=== PATIENT | female | born 1975 | race African-American/Black ===

== ENCOUNTER 2017-07-06 10:14 | Inpatient (IN) | payer OTHER ==
[2017-07-06 10:58] VITALS: BMI 25.6
--- NOTE | 2017-07-06 14:02 | HP ---
COWS - Scale Resting Pulse: 1= [place] 81-100 Sweatin=Flushed/Facial Moisture Restless Observation: 3= Extraneous Movement Pupil Size: 2= Moderately Dilated Bone or Joint Aches: 2= Severe Diffuse Aches Runny Nose/ Eye Tearin= Runny Nose/Eyes GI Upset > 30mins: 3= Vomiting/Diarrhea Tremor Observation: 2= Slight Tremor Visible Yawning Observation: 2= >3x During Session Anxiety or Irritability: 2=Irritable/Anxious Goose Flesh Skin: 0=Smooth Skin COWS Score: 21 Admission ROS BHS - HPI Chief Complaint: i need help to stop using heroin and cocaine Allergies/Adverse Reactions: Allergies Allergy/AdvReac Type Severity Reaction Status Date / Time mushroom Allergy Severe Difficulty Verified 07/06/17 12:36 Breathing peach Allergy Severe Difficulty Verified 07/06/17 12:36 Breathing plum Allergy Severe Difficulty Verified 07/06/17 12:36 Breathing shellfish derived Allergy Severe Difficulty Verified 07/06/17 12:36 Breathing No Known Drug Allergies Allergy Verified 07/06/17 12:36 History of Present Illness: this 42 years old female with heroin and cocaine dependence,seeking detox,last inpatient treatment [facility] 2013 history of asthma bipolar disorder,ocd,antisocial longest period of sobriety 8 months Exam Limitations: No Limitations - Ebola screening Have you traveled outside of the country in the last 21 days: No Have you been sick,other than usual withdrawal symptoms: No - Review of Systems Constitutional: Chills, Loss of Appetite, Malaise, Night Sweats, Changes in sleep, Weakness, Unintentional Wgt. Loss EENT: reports: Hearing Loss, Nose Congestion Respiratory: reports: Shortness of Breath (asthma), Other Cardiac: reports: Palpitations GI: reports: Diarrhea, Nausea, Vomiting, Abdominal cramping : reports: No Symptoms Reported Musculoskeletal: reports: Back Pain, Joint Pain, Muscle Pain, Joint Stiffness Integumentary: reports: Dryness Neuro: reports: Headache, Tremors Endocrine: reports: No Symptoms Reported Hematology: reports: No Symptoms Reported Psychiatric: reports: No Sypmtoms Reported, Judgement Intact, Mood/Affect Appropiate, Orientated x3 (ocd) Patient History - Patient Medical History Hx Anemia: No Hx Asthma: Yes (onalbuterol inhaler) Hx Chronic Obstructive Pulmonary Disease (COPD): No Hx Cancer: No Hx Cardiac Disorders: No Hx Congestive Heart Failure: No Hx Hypertension: No Hx Hypercholesterolemia: No Hx Pacemaker: No HX Cerebrovascular Accident: No Hx Seizures: No Hx Dementia: No Hx Diabetes: No Hx Gastrointestinal Disorders: No Hx Liver Disease: No Hx Genitourinary Disorders: No Hx Sexually Transmitted Disorders: No Hx Renal Disease (ESRD): No Hx Thyroid Disease: No Hx Human Immunodeficiency Virus (HIV): No (LAST 2014 negative) Hx Hepatitis C: Yes Hx Depression: Yes Hx Suicide Attempt: Yes (cut left wrist at age 13) Hx Bipolar Disorder: No Hx Schizophrenia: No Other Medical History: no suicidal,no homicidal - Patient Surgical History Past Surgical History: No Hx Neurologic Surgery: No Hx Cataract Extraction: No Hx Cardiac Surgery: No Hx Lung Surgery: No Hx Breast Surgery: No Hx Breast Biopsy: No Hx Abdominal Surgery: No Hx Appendectomy: No Hx Cholecystectomy: No Hx Genitourinary Surgery: No Hx Section: No Hx Orthopedic Surgery: No Anesthesia Reaction: No - PPD History Previous Implant?: Yes Documented Results: Negative w/proof Implanted On Prior [facility] Admission?: Yes Date: 05/18/12 Results: 0 mm PPD to be Administered?: Yes - Reproductive History Patient is a Female of Child Bearing Age (11 -55 yrs old): Yes Last Menstrual Period: 06/23/17 Patient : No - Smoking Cessation Smoking history: Current every day smoker Have you smoked in the past 12 months: Yes Aproximately how many cigarettes per day: 10 Hx Chewing Tobacco Use: No Initiated information on smoking cessation: Yes 'Breaking Loose' booklet given: 07/06/17 - Substance & Tx. History Hx Alcohol Use: No Hx Substance Use: Yes Substance Use Type: Cocaine, Heroin - Substances Abused Heroin Route: Inhalation Frequency: Daily Amount used: 6 bags Age of first use: 17 Date of Last Use: 07/06/17 Crack Route: Smoking Frequency: Daily Amount used: $100 Age of first use: 17 Date of Last Use: 07/05/17 [place] Route: Smoking Frequency: Daily Amount used: 3 blunts Age of first use: 9 Date of Last Use: 07/05/17 Marijuana Route: Smoking Frequency: Daily Amount used: 3 blunts Age of first use: 9 Date of Last Use: 07/05/17 Family Disease History - Family Disease History Family History: Denies Admission Physical Exam [facility] - Vital Signs Vital Signs: Vital Signs - 24 hr 07/06/17 10:56 Temperature 97.5 F L Pulse Rate 83 Respiratory 18 Rate Blood Pressure 150/80 - Physical General Appearance: Yes: Moderate Distress, Irritable, Sweating HEENTM: Yes: Normal ENT Inspection, ERIK, Pharynx Normal Respiratory: Yes: No Respiratory Distress, Wheezing Neck: Yes: Within Normal Limits Breast: Yes: Breast Exam Deferred Cardiology: Yes: Within Normal Limits, Regular Rhythm, Regular Rate, S1, S2 Abdominal: Yes: Within Normal Limits, Normal Bowel Sounds, Non Tender, Flat, Soft Genitourinary: Yes: Within Normal Limits Back: Yes: Muscle Spasm Musculoskeletal: Yes: Back pain, Muscle Pain Extremities: Yes: Tremors Neurological: Yes: software firmware engineer II-XII NML intact, Fully Oriented, Alert, Motor Strength 5/5 Integumentary: Yes: Dry Lymphatic: Yes: Within Normal Limits - Diagnostic (1) Opioid dependence with withdrawal Current Visit: No Status: Acute (2) Cocaine dependence Current Visit: Yes Status: Acute (3) Hepatitis C Current Visit: No Status: Acute (4) Nicotine dependence Current Visit: No Status: Acute (5) Asthma Current Visit: Yes Status: Acute (6) OCD (obsessive compulsive disorder) Current Visit: Yes Status: Acute (7) Personality disorder Current Visit: No Status: Acute Cleared for Admission [facility] - Detox or Rehab [facility] Level of Care: Medically Managed Detox Regimen/Protocol: Methadone [facility] Breath Alcohol Content Breath Alcohol Content: 0 Urine Pregancy Test - Result Urine Test Results: Negative- NO Line Present Urine Drug Screen - Results Drug Screen Negative: No Urine Drug Screen Results: THC-Marijuana, KAYY-Cocaine, OPI-Opiates
[2017-07-06] MEDS ORDERED: ACETAMINOPHEN 325 MG TABLET (FP) PO PRN (14:19)
[2017-07-06] MEDS ORDERED: IBUPROFEN 400 MG TABLET (FP) PO PRN (14:19)
[2017-07-06] MEDS ORDERED: MAG HYDROX/AL HYDROX/SIMETH 30 ML UNIT-DOSE CUP PO PRN (14:19)
[2017-07-06] MEDS ORDERED: guaiFENesin/D-METHORPHAN HB 10 ML UNIT-DOSE CUPS PO PRN (14:19)
[2017-07-06] MEDS ORDERED: P-EPHED 60MG/TRIPROLIDI 2.5MG TABLET PO PRN (14:19)
[2017-07-06] MEDS ORDERED: MENTHOL/PHENOL 1 EACH UD MM PRN (14:19)
[2017-07-06] MEDS ORDERED: MAGNESIUM CITRATE 300 ML BOTTLE PO PRN (14:19)
[2017-07-06] MEDS ORDERED: hydrOXYzine PAMOATE 25 MG CAPSULE (FP) PO PRN (14:19)
[2017-07-06] MEDS ORDERED: MAGNESIUM HYDROX 2400MG/30ML ORAL SUSPENSION 30 ML CUP PO PRN (14:19)
[2017-07-06] MEDS ORDERED: LOPERAMIDE HCL 2 MG CAPSULE PO PRN (14:19)
[2017-07-06] MEDS ORDERED: diphenhydrAMINE HCL 50 MG CAPSULE PO PRN (14:19)
[2017-07-06] MEDS ORDERED: ALBUTEROL SO4 2.5/IPRATROPIUM 0.5 INH SOL 3 ML VIAL.NEB. NEB PRN (14:27)
[2017-07-06] MEDS ORDERED: METHADONE HCL 10 MG TABLET (FOR DETOX USE ONLY) PO ONE ×2 (14:46→23:00)
[2017-07-06] MEDS: diazePAM 5 MG TABLET PO PRN ×2 (15:30→22:12)
[2017-07-06] MEDS: NICOTINE 21 MG/24 HOURS TOPICAL PATCH TD SCH (15:33)
[2017-07-06] MEDS: ALBUTEROL SO4 18 GM HFA INHALER IH PRN (15:37)
--- NOTE | 2017-07-06 15:45 | CONSULT ---
[facility] Psychiatric Consult - Data Date of interview: 07/06/17 Admission source: [facility] Identifying data: This is 42 years old female with no psychiatric hospitalization history intoxicated with: Crack, Heroin and Nicotine Substance Abuse History: - Smoking Cessation. Smoking history: Current every day smoker. Have you smoked in the past 12 months: Yes. Aproximately how many cigarettes per day: 10. Hx Chewing Tobacco Use: No. Initiated information on smoking cessation: Yes. 'Breaking Loose' booklet given: 07/06/17. - Substance & Tx. History. Hx Alcohol Use: No. Hx Substance Use: Yes. Substance Use Type : Cocaine, Heroin. - Substances Abused. Heroin. Route: Inhalation. Frequency: Daily. Amount used: 6 bags. Age of first use: 17. Date of Last Use : 07/06/17. Crack. Route: Smoking. Frequency: Daily. Amount used: $100. Age of first use: 17. Date of Last Use: 07/05/17. [place]. Route: Smoking. Frequency: Daily. Amount used: 3 blunts. Age of first use: 9. Date of Last Use: 07/05/17 Medical History: Asthma, HepC+, Psychiatric History: Patient reports history of depresssion, OCP. rtEPORTS TAKING PRIOR TO ADMISSION: WELLBUTRIN er 150MG POQD. SEROQUEL 200MG PO QHS Physical/Sexual Abuse/Trauma History: Denies Additional Comment: WELLBUTRIN er 150MG POQD. SEROQUEL 200MG PO QHS Mental Status Exam - Mental Status Exam Alert and Oriented to: Person Cognitive Function: Fair Patient Appearance: Unkempt Mood: Anxious Affect: Mood Congruent Patient Behavior: Cooperative Speech Pattern: Appropriate Voice Loudness: Normal Thought Process: Goal Oriented Thought Disorder: Being Controlled Hallucinations: Denies Suicidal Ideation: Denies Homicidal Ideation: Denies Insight/Judgement: Fair Sleep: Difficulty falling asleep Appetite: Weight loss Muscle strength/Tone: Normal Gait/Station: Normal Additional Comments: WELLBUTRIN er 150MG POQD. SEROQUEL 200MG PO QHS Psychiatric Findings - Problem List ([place] 1, 2,3) (1) Cocaine dependence Current Visit: Yes Status: Acute (2) OCD (obsessive compulsive disorder) Current Visit: Yes Status: Acute (3) Opioid dependence Current Visit: No Status: Active (4) Anxiety and depression Current Visit: No Status: Acute (5) Nicotine dependence Current Visit: No Status: Acute (6) Opioid dependence with withdrawal Current Visit: No Status: Acute (7) Personality disorder Current Visit: No Status: Acute (8) Drug-induced mood disorder Current Visit: Yes Status: Acute - Initial Treatment Plan Initial Treatment Plan: WELLBUTRIN er 150MG POQD. SEROQUEL 200MG PO QHS
[2017-07-06 17:13] LABS: URINE APPEARANCE SLCLOUDY; URINE BILIRUBIN NEGATIVE (NEGATIVE); URINE BLOOD NEGATIVE (NEGATIVE); URINE COLOR YELLOW; URINE GLUCOSE (UA) NEGATIVE (NEGATIVE); URINE KETONE NEGATIVE (NEGATIVE); URINE NITRITE NEGATIVE (NEGATIVE); URINE PROTEIN NEGATIVE (NEGATIVE); URINE UROBILINOGEN NEGATIVE mg/dL (0.2-1.0)
[2017-07-06] MEDS: THIAMINE HCL 100 MG TABLET (FP) PO SCH (22:12)
[2017-07-06 22:25] LABS: URINE LEUK ESTERASE Negative (NEGATIVE)
[2017-07-07] MEDS: ALBUTEROL SO4 18 GM HFA INHALER IH PRN ×2 (00:37→22:54)
[2017-07-07] MEDS: diazePAM 5 MG TABLET PO PRN ×2 (02:47→22:42)
[2017-07-07] MEDS ORDERED: METHADONE HCL 10 MG TABLET (FOR DETOX USE ONLY) PO ONE (10:00)
[2017-07-07 10:11] LABS: MCHC 31.9 g/dl (32.0-36.0); MEAN CELL VOLUME 78.6 fl (80-96); MEAN PLT VOLUME 7.5 fl (7.5-11.1); PLATELET COUNT 383 K/MM3 (134-434); RDW 15.5 % (11.6-15.6); WHITE BLOOD COUNT 5.8 K/mm3 (4.0-10.0)
[2017-07-07] MEDS: NICOTINE 21 MG/24 HOURS TOPICAL PATCH TD SCH (10:34)
[2017-07-07] MEDS: PRENATAL VITAMINS W/ FOLIC ACID TABLET (FP) PO SCH (10:34)
--- NOTE | 2017-07-07 10:35 | PN ---
BHS COWS - Scale Resting Pulse: 1= [place] 81-100 Sweatin=Flushed/Facial Moisture Restless Observation: 1= Difficult to Sit Still Pupil Size: 0= Normal to Room Light Bone or Joint Aches: 2= Severe Diffuse Aches Runny Nose/ Eye Tearin= Runny Nose/Eyes GI Upset > 30mins: 0= None Tremor Observation of Outstretched Hands: 2= Slight Tremor Visible Yawning Observation: 2= >3x During Session Anxiety or Irritability: 2=Irritable/Anxious Goose Flesh Skin: 3=Piloerection COWS Score: 17 BHS Progress Note (SOAP) Subjective: cough sweats irritable agitation anxiety body aches Objective: 07/07/17 10:34 Vital Signs Temperature 97.3 F L 07/07/17 06:40 Pulse Rate 82 07/07/17 06:40 Respiratory Rate 18 07/07/17 06:40 Blood Pressure 126/66 07/07/17 06:40 O2 Sat by Pulse Oximetry (%) Laboratory Tests 07/06/17 07/07/17 15:30 07:00 WBC 5.8 RBC 4.15 Hgb 10.4 L Hct 32.6 MCV 78.6 L MCH 25.0 L MCHC 31.9 L RDW 15.5 Plt Count 383 D MPV 7.5 D Urine Color Yellow Urine Appearance Slcloudy Urine pH 6.0 Ur Specific [place] 1.020 Urine Protein Negative Urine Glucose (UA) Negative Urine Ketones Negative Urine Blood Negative Urine Nitrite Negative Urine Bilirubin Negative Urine Urobilinogen Negative Ur Leukocyte Esterase Negative labs pending aaox3 ambulating no acute distress Assessment: 07/07/17 10:34 withdrawal sx Plan: continue detox increase fluids encourage albuterol duoneb tx robutussin prn
[2017-07-07 10:40] LABS: ALK PHOS 61 U/L (45-117); ANION GAP 11 (8-16); BILIRUBIN,TOTAL 0.4 mg/dL (0.2-1.0); CALCIUM 8.3 mg/dL (8.5-10.1); CO2 24 mmol/L (21-32); CREATININE 0.8 mg/dL (0.55-1.02); GLUCOSE,RANDOM 76 mg/dL (74-106); SGOT/AST 14 U/L (15-37); SGPT/ALT 13 U/L (12-78); TOT PROT 6.8 g/dl (6.4-8.2)
--- NOTE | 2017-07-07 20:33 | EKG ---
Test Reason : Blood Pressure : / mmHG Vent. Rate : 086 BPM Atrial Rate : 086 BPM P-R Int : 148 ms QRS Dur : 080 ms QT Int : 358 ms P-R-T Axes : 058 067 019 degrees QTc Int : 428 ms SINUS RHYTHM WITH PREMATURE ATRIAL COMPLEXES POSSIBLE LEFT ATRIAL ENLARGEMENT SEPTAL INFARCT , AGE UNDETERMINED ABNORMAL ECG NO PREVIOUS ECGS AVAILABLE REPEAT EKG IF CLINICALLY INDICATED Confirmed by MIRELA BROWN MD ([id number]) on 07/07/2017 8:32:55 PM Referred By: Confirmed By:MIRELA BROWN MD
[2017-07-07] MEDS: THIAMINE HCL 100 MG TABLET (FP) PO SCH (22:42)
[2017-07-08] MEDS ORDERED: ALBUTEROL SO4 18 GM HFA INHALER IH ONE (00:48)
[2017-07-08] MEDS: ALBUTEROL SO4 18 GM HFA INHALER IH PRN ×2 (04:38→09:15)
[2017-07-08] MEDS ORDERED: METHADONE HCL 5 MG TABLET (FOR DETOX USE ONLY) PO ONE (10:00)
[2017-07-08] MEDS ORDERED: cloNIDine HCL 0.1 MG TABLET PO ONE (10:35)
[2017-07-08] MEDS: PRENATAL VITAMINS W/ FOLIC ACID TABLET (FP) PO SCH (10:40)
[2017-07-08] MEDS: diazePAM 5 MG TABLET PO PRN (10:40)
--- NOTE | 2017-07-08 10:40 | PN ---
BHS COWS - Scale Resting Pulse: 1= [place] 81-100 Sweatin=Flushed/Facial Moisture Restless Observation: 1= Difficult to Sit Still Pupil Size: 0= Normal to Room Light Bone or Joint Aches: 2= Severe Diffuse Aches Runny Nose/ Eye Tearin= Runny Nose/Eyes GI Upset > 30mins: 0= None Tremor Observation of Outstretched Hands: 2= Slight Tremor Visible Yawning Observation: 1= 1-2x During Session Anxiety or Irritability: 2=Irritable/Anxious Goose Flesh Skin: 0=Smooth Skin COWS Score: 13 BHS Progress Note (SOAP) Subjective: irritable sweats interrupted sleep agitation Objective: 07/08/17 10:38 Vital Signs Temperature 98.2 07/08/17 10:00 Pulse Rate 96 07/08/17 10:00 Respiratory Rate 18 07/08/17 10:00 Blood Pressure 155/102 07/08/17 10:00 O2 Sat by Pulse Oximetry (%) Laboratory Tests 07/06/17 07/07/17 07/07/17 15:30 07:00 07:00 WBC 5.8 RBC 4.15 Hgb 10.4 L Hct 32.6 MCV 78.6 L MCH 25.0 L MCHC 31.9 L RDW 15.5 Plt Count 383 D MPV 7.5 D Sodium 141 Potassium 4.2 D Chloride 106 Carbon Dioxide 24 Anion Gap 11 BUN 11 Creatinine 0.8 Creat Clearance w eGFR > 60 Random Glucose 76 D Calcium 8.3 L Total Bilirubin 0.4 D AST 14 L ALT 13 D Alkaline Phosphatase 61 D Total Protein 6.8 Albumin 3.0 L Urine Color Yellow Urine Appearance Slcloudy Urine pH 6.0 Ur Specific [place] 1.020 Urine Protein Negative Urine Glucose (UA) Negative Urine Ketones Negative Urine Blood Negative Urine Nitrite Negative Urine Bilirubin Negative Urine Urobilinogen Negative Ur Leukocyte Esterase Negative RPR Titer 07/07/17 07:00 WBC RBC Hgb Hct MCV MCH MCHC RDW Plt Count MPV Sodium Potassium Chloride Carbon Dioxide Anion Gap BUN Creatinine Creat Clearance w eGFR Random Glucose Calcium Total Bilirubin AST ALT Alkaline Phosphatase Total Protein Albumin Urine Color Urine Appearance Urine pH Ur Specific [place] Urine Protein Urine Glucose (UA) Urine Ketones Urine Blood Urine Nitrite Urine Bilirubin Urine Urobilinogen Ur Leukocyte Esterase RPR Titer Nonreactive aaox3 ambulating no acute distress hypertension 155/102; will order clonidine 0.1mg x one monitor BP Assessment: 07/08/17 10:44 withdrawal sx Plan: continue detox increase fluids monitor BP clonidine 0.1mg x one
[2017-07-08] MEDS: NICOTINE 21 MG/24 HOURS TOPICAL PATCH TD SCH (10:42)
--- NOTE | 2017-07-08 14:47 | PN ---
[facility] Progress Note Note: Psychiatry Attending's note : Called to enter orders for wellbutrin XL and seroquel. Chart reviewed.Dr Bhakta's note (07/06/17) : appreciated. Both medications are confirmed in psychiatrist's treatment plan. Met with patient at bedside.Fully aware of her regimen of medications. Eager to resume these two drugs. Wellbutrin Xl 150 mg po daily + seroquel 100 mg po hs.Ordered. Seroquel is intentionally reduced (if no oversedation in AM,titration to 200 mg/ hs). Side effects/benefits are reviewed with the patient.Brief meeting.She agrees. Discussed with nursing staff.
[2017-07-08] MEDS ORDERED: QUEtiapine FUMARATE 100 MG TABLET (FP) PO SCH (22:00)
[2017-07-08] MEDS: THIAMINE HCL 100 MG TABLET (FP) PO SCH (22:26)
[2017-07-09] MEDS ORDERED: METHADONE HCL 5 MG TABLET (FOR DETOX USE ONLY) PO ONE (10:00)
[2017-07-09] MEDS: PRENATAL VITAMINS W/ FOLIC ACID TABLET (FP) PO SCH (10:44)
[2017-07-09] MEDS: diazePAM 5 MG TABLET PO PRN (10:44)
--- NOTE | 2017-07-09 11:26 | PN ---
BHS Progress Note (SOAP) Subjective: irritable sweats restless Objective: 07/09/17 11:25 Vital Signs Temperature 98.2 F 07/09/17 09:50 Pulse Rate 82 07/09/17 09:50 Respiratory Rate 18 07/09/17 09:50 Blood Pressure 133/98 07/09/17 09:50 O2 Sat by Pulse Oximetry (%) aaox3 ambulating no acute distress Assessment: 07/09/17 11:26 withdrawal sx Plan: continue detox increase fluids
[2017-07-09] MEDS: ALBUTEROL SO4 18 GM HFA INHALER IH PRN (11:48)
[2017-07-09] MEDS: NICOTINE 21 MG/24 HOURS TOPICAL PATCH TD SCH (11:59)
[2017-07-09 22:26] VITALS: BP 139/84; PULSE 81; TEMP 98.1
--- NOTE | 2017-07-10 00:03 | DS ---
[facility] Detox Discharge Summary Admission Date: 07/06/17 Discharge Date: 07/09/17 - History Present History: Opioid Dependence Additional Comments: received nurse called that the patient wants to leave the facility patient left the unit before provider arrived Pertinent Past History: asthma - Physical Exam Results Vital Signs: Vital Signs Temperature 98.1 F 07/09/17 18:00 Pulse Rate 81 07/09/17 18:00 Respiratory Rate 20 07/09/17 18:00 Blood Pressure 139/84 07/09/17 18:00 O2 Sat by Pulse Oximetry (%) Pertinent Admission Physical Exam Findings: withdrawal sx Laboratory Last Values WBC 5.8 K/mm3 (4.0-10.0) 07/07/17 07:00 RBC 4.15 M/mm3 (3.60-5.2) 07/07/17 07:00 Hgb 10.4 GM/dL (10.7-15.3) L 07/07/17 07:00 Hct 32.6 % (32.4-45.2) 07/07/17 07:00 MCV 78.6 fl (80-96) L 07/07/17 07:00 MCH 25.0 pg (25.7-33.7) L 07/07/17 07:00 MCHC 31.9 g/dl (32.0-36.0) L 07/07/17 07:00 RDW 15.5 % (11.6-15.6) 07/07/17 07:00 Plt Count 383 K/MM3 (134-434) D 07/07/17 07:00 MPV 7.5 fl (7.5-11.1) D 07/07/17 07:00 Sodium 141 mmol/L (136-145) 07/07/17 07:00 Potassium 4.2 mmol/L (3.5-5.1) D 07/07/17 07:00 Chloride 106 mmol/L (98-107) 07/07/17 07:00 Carbon Dioxide 24 mmol/L (21-32) 07/07/17 07:00 Anion Gap 11 (8-16) 07/07/17 07:00 BUN 11 mg/dL (7-18) 07/07/17 07:00 Creatinine 0.8 mg/dL (0.55-1.02) 07/07/17 07:00 Creat Clearance w eGFR > 60 (>60) 07/07/17 07:00 Random Glucose 76 mg/dL (74-106) D 07/07/17 07:00 Calcium 8.3 mg/dL (8.5-10.1) L 07/07/17 07:00 Total Bilirubin 0.4 mg/dL (0.2-1.0) D 07/07/17 07:00 AST 14 U/L (15-37) L 07/07/17 07:00 ALT 13 U/L (12-78) D 07/07/17 07:00 Alkaline Phosphatase 61 U/L (45-117) D 07/07/17 07:00 Total Protein 6.8 g/dl (6.4-8.2) 07/07/17 07:00 Albumin 3.0 g/dl (3.4-5.0) L 07/07/17 07:00 Urine Color Yellow 07/06/17 15:30 Urine Appearance Slcloudy 07/06/17 15:30 Urine pH 6.0 (5.0-8.0) 07/06/17 15:30 Ur Specific [place] 1.020 (1.005-1.025) 07/06/17 15:30 Urine Protein Negative (NEGATIVE) 07/06/17 15:30 Urine Glucose (UA) Negative (NEGATIVE) 07/06/17 15:30 Urine Ketones Negative (NEGATIVE) 07/06/17 15:30 Urine Blood Negative (NEGATIVE) 07/06/17 15:30 Urine Nitrite Negative (NEGATIVE) 07/06/17 15:30 Urine Bilirubin Negative (NEGATIVE) 07/06/17 15:30 Urine Urobilinogen Negative mg/dL (0.2-1.0) 07/06/17 15:30 Ur Leukocyte Esterase Negative (NEGATIVE) 07/06/17 15:30 RPR Titer Nonreactive (NONREACTIVE) 07/07/17 07:00 lab noted - Treatment Hospital Course: Detox Protocol Followed, Responded well Patient has Accepted a Rehab Referral to: patient wants to go back to her out patient program - Medication Discharge Medications: Ambulatory Orders Albuterol Sulfate Inhaler - [Ventolin Hfa Inhaler -] 2 inh PO Q4H PRN 03/31/16 Bupropion HCl [Wellbutrin -] 0 mg PO DAILY 07/06/17 Quetiapine Fumarate [Seroquel -] 200 mg PO HS 07/06/17 - AMA Did Patient Leave Against Medical Advice: Yes
[2017-07-10] MEDS ORDERED: METHADONE HCL 10 MG TABLET (FOR DETOX USE ONLY) PO ONE (10:00)
[2017-07-11] MEDS ORDERED: METHADONE HCL 5 MG TABLET (FOR DETOX USE ONLY) PO ONE (06:00)
== END 2017-07-09 21:45 | disposition left against medical advice (07) | DRG 770 ==
LOC: YASAS 10:14 → Y6N 14:34
PROVIDERS: ADMIT Internal Medicine; ATTEND Internal Medicine
PROC: HZ2ZZZZ Detoxification Services for Substance Abuse Treatment (ICD-10-PCS; principal; 2017-07-06)
DX: F11.23 Opioid dependence with withdrawal (principal); F14.20 Cocaine dependence, uncomplicated; F17.210 Nicotine dependence, cigarettes, uncomplicated; F39 Unspecified mood [affective] disorder; F19.24 Other psychoactive substance dependence with psychoactive substance-induced mood disorder; F41.8 Other specified anxiety disorders; F42.9 Obsessive-compulsive disorder, unspecified; J45.909 Unspecified asthma, uncomplicated; B18.2 Chronic viral hepatitis C; I10 Essential (primary) hypertension; Z91.048 Other nonmedicinal substance allergy status; Z91.013 Allergy to seafood; Z91.5 Personal history of self-harm
CPT/HCPCS: 36415; 80053; 81003; 85027; 86593; 93005; 93010

== ENCOUNTER 2018-10-29 13:45 | Inpatient (IN) | payer OTHER ==
[2018-10-29 13:53] VITALS: BMI 21.2
--- NOTE | 2018-10-29 15:21 | HP ---
COWS - Scale Resting Pulse: 0= [place] 80 or Below Sweatin=Flushed/Facial Moisture Restless Observation: 1= Difficult to Sit Still Pupil Size: 2= Moderately Dilated Bone or Joint Aches: 2= Severe Diffuse Aches Runny Nose/ Eye Tearin= Runny Nose/Eyes GI Upset > 30mins: 1= Stomach Cramp Tremor Observation: 0= None Yawning Observation: 1= 1-2x During Session Anxiety or Irritability: 2=Irritable/Anxious Goose Flesh Skin: 0=Smooth Skin COWS Score: 13 CIWA Score - Admission Criteria OAS Guidelines: Admission for Medically Managed Detox: Requires at least one of the followin. CIWA greater than 12 2. Seizures within the past 24 hours 3. Delirium tremens within the past 24 hours 4. Hallucinations within the past 24 hours 5. Acute intervention needed for co occurring medical disorder 6. Acute intervention needed for co occurring psychiatric disorder 7. Severe withdrawal that cannot be handled at a lower level of care (continued vomiting, continued diarrhea, abnormal vital signs) requiring intravenous medication and/or fluids 8. Admission ROS [facility] Chief Complaint: HEROIN WITHDRAWAL SX Allergies/Adverse Reactions: Allergies Allergy/AdvReac Type Severity Reaction Status Date / Time mushroom Allergy Severe Difficulty Verified 07/06/17 12:36 Breathing peach Allergy Severe Difficulty Verified 07/06/17 12:36 Breathing plum Allergy Severe Difficulty Verified 07/06/17 12:36 Breathing shellfish derived Allergy Severe Difficulty Verified 07/06/17 12:36 Breathing No Known Drug Allergies Allergy Verified 07/06/17 12:36 History of Present Illness: PATIENT PRESENTS WITH HEROIN WITHDRAWAL SX. PATIENT LAST ADMITTED TO DETOX HERE AT [facility] IN 2017. HOWEVER, PATIENT STOOD ONE DAY AT [facility] LAST WEEK AND SIGNED OUT AMA DUE TO OPIOD CRAVINGS. PATIENT STARTED SNIFFING HEROIN AT AGE 17 , AND SNIFFS 14 BAGS DAILY. LAST USED WAS THIS MORNING. PATIENT IS ALSO SOCIAL DRINKER BUT DOES NOT DRINK DAILY. ANABELLA 0.017, UDS KAYY/FEN/MTD/OPI. PATIENT DENIES HX OF SEIZURES, OVERDOSE. +BLACKOUTS. PMH INCLUDES HEP C (UNTREATED )OCD , ANTI-SOCIAL PERSONALITY DISORDER, ASTHMA, SCIATICA AND SCOLIOIS. PATIENT DENIES SI/HI. SUICIDE ATTEMPTS AT AGE 13. +TOBACCO USE. + COCAINE USE, 10 BAGS DAILY SINCE AGE 17. LAST USE TODAY. Exam Limitations: No Limitations - Ebola screening Have you traveled outside of the country in the last 21 days: No Have you had contact with anyone from an Ebola affected area: No Have you been sick,other than usual withdrawal symptoms: No Do you have a fever: No - Review of Systems Constitutional: Chills, Changes in sleep, Unintentional Wgt. Loss EENT: reports: Tearing, Nose Congestion Respiratory: reports: Shortness of Breath (MILD, INTERMITTENT) Cardiac: reports: No Symptoms Reported GI: reports: Poor Fluid Intake, Abdominal cramping : reports: No Symptoms Reported Musculoskeletal: reports: Back Pain, Muscle Pain Integumentary: reports: Sweating Neuro: reports: Headache Endocrine: reports: Unexplained Weight Loss Hematology: reports: No Symptoms Reported Psychiatric: reports: Orientated x3, Anxious Patient History - Patient Medical History Hx Anemia: No Hx Asthma: Yes (onalbuterol inhaler) Hx Chronic Obstructive Pulmonary Disease (COPD): No Hx Cancer: No Hx Cardiac Disorders: No Hx Congestive Heart Failure: No Hx Hypertension: No Hx Hypercholesterolemia: No Hx Pacemaker: No HX Cerebrovascular Accident: No Hx Seizures: No Hx Dementia: No Hx Diabetes: No Hx Gastrointestinal Disorders: No Hx Liver Disease: No Hx Genitourinary Disorders: No Hx Sexually Transmitted Disorders: No Hx Renal Disease (ESRD): No Hx Thyroid Disease: No Hx Human Immunodeficiency Virus (HIV): No (LAST 2014 negative) Hx Hepatitis C: Yes Hx Depression: No Hx Suicide Attempt: Yes (cut left wrist at age 13) Hx Bipolar Disorder: No Hx Schizophrenia: No - Patient Surgical History Past Surgical History: No Hx Neurologic Surgery: No Hx Cataract Extraction: No Hx Cardiac Surgery: No Hx Lung Surgery: No Hx Breast Surgery: No Hx Breast Biopsy: No Hx Abdominal Surgery: No Hx Appendectomy: No Hx Cholecystectomy: No Hx Genitourinary Surgery: No Hx Section: No Hx Orthopedic Surgery: No Hx Hysterectomy: No Anesthesia Reaction: No - PPD History Previous Implant?: Yes Documented Results: Negative w/o proof Date: 07/08/17 Results: 0 mm PPD to be Administered?: Yes - Reproductive History Last Menstrual Period: 06/14/18 Patient : No - Smoking Cessation Smoking history: Current every day smoker Have you smoked in the past 12 months: Yes Aproximately how many cigarettes per day: 6 Hx Chewing Tobacco Use: No Initiated information on smoking cessation: Yes 'Breaking Loose' booklet given: 10/29/18 - Substance & Tx. History Hx Alcohol Use: Yes (SOCIAL DRINKER) Hx Substance Use: Yes Substance Use Type: Cocaine, Heroin Hx Substance Use Treatment: Yes - Substances Abused Crack Route: Smoking Frequency: Daily Amount used: 10 BAGS Age of first use: 17 Date of Last Use: 10/29/18 Heroin Route: Inhalation Frequency: Daily Amount used: 14 BAGS Age of first use: 17 Date of Last Use: 10/29/18 Family Disease History - Family Disease History Family History: Denies Admission Physical Exam [facility] - Vital Signs Vital Signs: Vital Signs - 24 hr 10/29/18 13:50 Temperature 98.1 F Pulse Rate 80 Respiratory 20 Rate Blood Pressure 155/92 - Physical General Appearance: Yes: Disheveled, Thin, Tremorous, Sweating, Anxious HEENTM: Yes: EOMI, Hearing grossly Normal, Normocephalic, Normal Voice, Pharynx Normal, Nasal Congestion Respiratory: Yes: Chest Non-Tender, Lungs Clear, Normal Breath Sounds, No Respiratory Distress, No Accessory Muscle Use Neck: Yes: No masses,lesions,Nodules, Supple, Trachea in good position Breast: Yes: Breast Exam Deferred Cardiology: Yes: Regular Rhythm, Regular Rate, S1, S2 Abdominal: Yes: Normal Bowel Sounds, Non Tender, Soft Genitourinary: Yes: Within Normal Limits Back: Yes: Muscle Spasm Musculoskeletal: Yes: Gait Steady, Back pain, Muscle Pain, Muscle weakness Extremities: Yes: Normal Inspection, Normal Range of Motion, Non-Tender, Tremors Neurological: Yes: gauntlet pairer II-XII NML intact, Fully Oriented, Alert, Motor Strength 5/5, Normal Response, Other (ANXIOUS) Integumentary: Yes: Normal Color, Warm, Moist Lymphatic: Yes: Within Normal Limits - Diagnostic (1) OCD (obsessive compulsive disorder) Current Visit: Yes Status: Acute Qualifiers: Obsessive-compulsive disorder type: unspecified Qualified Code(s): F42.9 - Obsessive-compulsive disorder, unspecified (2) Asthma Current Visit: Yes Status: Chronic Qualifiers: Asthma severity: mild Asthma complication type: unspecified (3) Cocaine dependence Current Visit: Yes Status: Chronic Qualifiers: Substance use status: uncomplicated Qualified Code(s): F14.20 - Cocaine dependence, uncomplicated (4) Hepatitis C Current Visit: No Status: Chronic Qualifiers: Viral hepatitis chronicity: chronic Hepatic coma status: without hepatic coma Qualified Code(s): B18.2 - Chronic viral hepatitis C (5) Nicotine dependence Current Visit: No Status: Chronic Qualifiers: Nicotine product type: cigarettes Substance use status: uncomplicated Qualified Code(s): F17.210 - Nicotine dependence, cigarettes, uncomplicated (6) Opioid dependence with withdrawal Current Visit: Yes Status: Acute Cleared for Admission [facility] - Detox or Rehab [facility] Level of Care: Medically Managed Detox Regimen/Protocol: Methadone [facility] Breath Alcohol Content Breath Alcohol Content: 0.017 Urine Pregancy Test - Result Urine Test Results: Negative- NO Line Present Urine Drug Screen - Results Drug Screen Negative: No Urine Drug Screen Results: KAYY-Cocaine, OPI-Opiates, MTD-Methadone, FEN-Fentanyl Inpatient Rehab Admission - Rehab Decision to Admit Inpatient rehab admission?: No
[2018-10-29] MEDS ORDERED: guaiFENesin/D-METHORPHAN HB 10 ML UNIT-DOSE CUPS PO PRN (15:31)
[2018-10-29] MEDS ORDERED: NICOTINE POLACRILEX 2 MG GUM BC PRN (15:31)
[2018-10-29] MEDS ORDERED: hydrOXYzine PAMOATE 50 MG CAPSULE (FP) PO PRN (15:31)
[2018-10-29] MEDS ORDERED: MENTHOL/PHENOL 1 EACH UD MM PRN (15:31)
[2018-10-29] MEDS ORDERED: MAGNESIUM CITRATE 300 ML BOTTLE PO PRN (15:31)
[2018-10-29] MEDS ORDERED: P-EPHED 60MG/TRIPROLIDI 2.5MG TABLET PO PRN (15:31)
[2018-10-29] MEDS ORDERED: MAG HYDROX/AL HYDROX/SIMETH 30 ML UNIT-DOSE CUP PO PRN (15:31)
[2018-10-29] MEDS ORDERED: ACETAMINOPHEN 325 MG TABLET (FP) PO PRN (15:31)
[2018-10-29] MEDS ORDERED: IBUPROFEN 400 MG TABLET (FP) PO PRN (15:31)
[2018-10-29] MEDS ORDERED: LOPERAMIDE HCL 2 MG CAPSULE PO PRN (15:31)
[2018-10-29] MEDS ORDERED: MAGNESIUM HYDROX 2400MG/30ML ORAL SUSPENSION 30 ML CUP PO PRN (15:31)
[2018-10-29] MEDS ORDERED: ALBUTEROL SO4 8 GM HFA INHALER IH PRN (15:32)
[2018-10-29] MEDS ORDERED: METHADONE HCL 10 MG TABLET (FOR DETOX USE ONLY) PO ONE ×2 (17:00→23:00)
[2018-10-29] MEDS: diazePAM 5 MG TABLET PO PRN (19:42)
[2018-10-29] MEDS ORDERED: MELATONIN 5 MG TABLETS PO PRN (22:00)
[2018-10-29] MEDS: THIAMINE HCL 100 MG TABLET (FP) PO SCH (22:30)
[2018-10-30] MEDS ORDERED: METHADONE HCL 10 MG TABLET (FOR DETOX USE ONLY) PO ONE (10:00)
[2018-10-30] MEDS: PRENATAL VITAMINS W/ FOLIC ACID TABLET (FP) PO SCH (10:27)
[2018-10-30] MEDS: diazePAM 5 MG TABLET PO PRN ×2 (10:27→22:15)
[2018-10-30 11:27] LABS: HEMATOCRIT 37.5 % (32.4-45.2); HEMOGLOBIN 12.6 GM/dL (10.7-15.3); MCHC 33.5 g/dl (32.0-36.0); MEAN CELL VOLUME 86.5 fl (80-96); MEAN PLT VOLUME 8.2 fl (7.5-11.1); PLATELET COUNT 300 K/MM3 (134-434); RBC 4.33 M/mm3 (3.60-5.2); RDW 14.1 % (11.6-15.6); WHITE BLOOD COUNT 3.7 K/mm3 (4.0-10.0)
[2018-10-30 11:34] LABS: ALBUMIN 2.7 g/dl (3.4-5.0); ALK PHOS 65 U/L (45-117); ANION GAP 6 MMOL/L (8-16); BILIRUBIN,TOTAL 0.4 mg/dL (0.2-1); BLOOD UREA NITROGEN 16 mg/dL (7-18); CALCIUM 8.1 mg/dL (8.5-10.1); CHLORIDE 110 mmol/L (98-107); CO2 27 mmol/L (21-32); CREATININE 0.9 mg/dL (0.55-1.3); GLUCOSE,RANDOM 76 mg/dL (74-106); POTASSIUM 4.1 mmol/L (3.5-5.1); SGOT/AST 10 U/L (15-37); SGPT/ALT 16 U/L (13-61); SODIUM 142 mmol/L (136-145); TOT PROT 5.7 g/dl (6.4-8.2)
--- NOTE | 2018-10-30 13:22 | EKG ---
Test Reason : Blood Pressure : / mmHG Vent. Rate : 080 BPM Atrial Rate : 080 BPM P-R Int : 142 ms QRS Dur : 084 ms QT Int : 388 ms P-R-T Axes : 059 057 038 degrees QTc Int : 447 ms SINUS RHYTHM WITH PREMATURE ATRIAL COMPLEXES Confirmed by ISABELL WATKINS MD ([id number]) on 10/30/2018 1:21:41 PM Referred By: Confirmed By:ISABELL WATKINS MD
--- NOTE | 2018-10-30 13:59 | PN ---
BHS COWS - Scale Resting Pulse: 1= [place] 81-100 Sweatin= No chills or Flushing Restless Observation: 0= Sits Still Pupil Size: 0= Normal to Room Light Bone or Joint Aches: 0= None Runny Nose/ Eye Tearin= None GI Upset > 30mins: 0= None Tremor Observation of Outstretched Hands: 0= None Yawning Observation: 0= None Anxiety or Irritability: 0= None Goose Flesh Skin: 0=Smooth Skin COWS Score: 1 BHS Progress Note (SOAP) Subjective: pt states he is fine with heroin detox protocol O: Vital Signs - 24 hr 10/29/18 10/29/18 10/30/18 19:42 22:56 00:30 Temperature 98.6 F 98.2 F Pulse Rate 80 86 Respiratory 18 18 18 Rate Blood Pressure 139/90 141/95 10/30/18 10/30/18 10/30/18 08:49 09:49 13:48 Temperature 97.9 F 98 F 98.2 F Pulse Rate 64 85 81 Respiratory 18 16 18 Rate Blood Pressure 134/86 136/81 124/94 Laboratory Tests 10/30/18 10/30/18 10/30/18 07:45 07:45 07:45 WBC 3.7 L RBC 4.33 Hgb 12.6 Hct 37.5 D MCV 86.5 MCH 29.0 D MCHC 33.5 RDW 14.1 Plt Count 300 D MPV 8.2 Sodium 142 Potassium 4.1 Chloride 110 H Carbon Dioxide 27 Anion Gap 6 L BUN 16 Creatinine 0.9 Creat Clearance w eGFR > 60 Random Glucose 76 Calcium 8.1 L Total Bilirubin 0.4 AST 10 L ALT 16 Alkaline Phosphatase 65 Total Protein 5.7 L Albumin 2.7 L RPR Titer Nonreactive a/p: contiue detox protocol- pt seems to be doing well prn meds as needed
[2018-10-30] MEDS: THIAMINE HCL 100 MG TABLET (FP) PO SCH (22:15)
[2018-10-31] MEDS ORDERED: METHADONE HCL 5 MG TABLET (FOR DETOX USE ONLY) PO ONE (10:00)
[2018-10-31] MEDS: PRENATAL VITAMINS W/ FOLIC ACID TABLET (FP) PO SCH (10:05)
[2018-10-31] MEDS: diazePAM 5 MG TABLET PO PRN ×2 (10:05→22:18)
--- NOTE | 2018-10-31 13:45 | PN ---
BHS COWS - Scale Resting Pulse: 0= [place] 80 or Below Sweatin=Flushed/Facial Moisture Restless Observation: 1= Difficult to Sit Still Pupil Size: 2= Moderately Dilated Bone or Joint Aches: 2= Severe Diffuse Aches Runny Nose/ Eye Tearin= None GI Upset > 30mins: 0= None Tremor Observation of Outstretched Hands: 0= None Yawning Observation: 0= None Anxiety or Irritability: 2=Irritable/Anxious Goose Flesh Skin: 0=Smooth Skin COWS Score: 9 BHS Progress Note (SOAP) Subjective: PATIENT C/O ANXIETY, IRRITABILITY, SWEATING AND BODY ACHES Objective: 10/31/18 13:44 Vital Signs Temperature 97.7 F 10/31/18 09:40 Pulse Rate 70 10/31/18 09:40 Respiratory Rate 16 10/31/18 09:40 Blood Pressure 151/96 10/31/18 09:40 O2 Sat by Pulse Oximetry (%) Laboratory Tests 10/30/18 10/30/18 10/30/18 07:45 07:45 07:45 WBC 3.7 L RBC 4.33 Hgb 12.6 Hct 37.5 D MCV 86.5 MCH 29.0 D MCHC 33.5 RDW 14.1 Plt Count 300 D MPV 8.2 Sodium 142 Potassium 4.1 Chloride 110 H Carbon Dioxide 27 Anion Gap 6 L BUN 16 Creatinine 0.9 Creat Clearance w eGFR > 60 Random Glucose 76 Calcium 8.1 L Total Bilirubin 0.4 AST 10 L ALT 16 Alkaline Phosphatase 65 Total Protein 5.7 L Albumin 2.7 L RPR Titer Nonreactive PE: ALERT AND ORIENTED X 3 SKIN WARM AND FACIAL MOISTURE EXT FULL ROM, NO TREMORS ANXIOUS AND IRRITABLE Assessment: 10/31/18 13:45 WITHDRAWAL SX Plan: CONTINUE DETOX ENCOURAGE ORAL FLUIDS CONTINUE TO MONITOR CLINICALLY
[2018-10-31 15:13] LABS: URINE APPEARANCE CLEAR; URINE BILIRUBIN NEGATIVE (<2.0 mg/dL); URINE COLOR LTYELLOW; URINE GLUCOSE (UA) NEGATIVE (NEGATIVE); URINE KETONE NEGATIVE (NEGATIVE); URINE LEUK ESTERASE NEGATIVE (NEGATIVE); URINE NITRITE NEGATIVE (NEGATIVE); URINE PROTEIN NEGATIVE (NEGATIVE); URINE UROBILINOGEN NEGATIVE mg/dL (0.2-1.0)
[2018-10-31] MEDS: THIAMINE HCL 100 MG TABLET (FP) PO SCH (22:18)
[2018-11-01] MEDS ORDERED: METHADONE HCL 5 MG TABLET (FOR DETOX USE ONLY) PO ONE (10:00)
[2018-11-01] MEDS: PRENATAL VITAMINS W/ FOLIC ACID TABLET (FP) PO SCH ×2 (10:07→10:10)
--- NOTE | 2018-11-01 10:56 | PN ---
BHS Progress Note (SOAP) Subjective: chills sweats interrupted sleep body aches Objective: 11/01/18 10:55 Vital Signs Temperature 98.1 F 11/01/18 09:57 Pulse Rate 74 11/01/18 09:57 Respiratory Rate 16 11/01/18 09:57 Blood Pressure 132/72 11/01/18 09:57 O2 Sat by Pulse Oximetry (%) Laboratory Tests 10/30/18 10/30/18 10/30/18 07:45 07:45 07:45 WBC 3.7 L RBC 4.33 Hgb 12.6 Hct 37.5 D MCV 86.5 MCH 29.0 D MCHC 33.5 RDW 14.1 Plt Count 300 D MPV 8.2 Sodium 142 Potassium 4.1 Chloride 110 H Carbon Dioxide 27 Anion Gap 6 L BUN 16 Creatinine 0.9 Creat Clearance w eGFR > 60 Random Glucose 76 Calcium 8.1 L Total Bilirubin 0.4 AST 10 L ALT 16 Alkaline Phosphatase 65 Total Protein 5.7 L Albumin 2.7 L Urine Color Urine Appearance Urine pH Ur Specific [place] Urine Protein Urine Glucose (UA) Urine Ketones Urine Blood Urine Nitrite Urine Bilirubin Urine Urobilinogen Ur Leukocyte Esterase RPR Titer Nonreactive 10/31/18 10:03 WBC RBC Hgb Hct MCV MCH MCHC RDW Plt Count MPV Sodium Potassium Chloride Carbon Dioxide Anion Gap BUN Creatinine Creat Clearance w eGFR Random Glucose Calcium Total Bilirubin AST ALT Alkaline Phosphatase Total Protein Albumin Urine Color Ltyellow Urine Appearance Clear Urine pH 6.0 Ur Specific [place] 1.013 Urine Protein Negative Urine Glucose (UA) Negative Urine Ketones Negative Urine Blood Negative Urine Nitrite Negative Urine Bilirubin Negative Urine Urobilinogen Negative Ur Leukocyte Esterase Negative RPR Titer aaox3 ambulating no acute distress Assessment: 11/01/18 10:55 withdrawal sx Plan: continue detox increase fluids
[2018-11-01] MEDS: diazePAM 5 MG TABLET PO PRN (11:30)
[2018-11-01 18:22] VITALS: BP 120/72; PULSE 76; TEMP 98.2
--- NOTE | 2018-11-01 21:27 | DS ---
[facility] Detox Discharge Summary Admission Date: 10/29/18 Discharge Date: 11/01/18 - History Present History: Cocaine Dependence, Opioid Dependence Pertinent Past History: Patient left AMA. Patient to follow up with PCP. If worsening symptoms are present patient to follow up with the emergency deparment. - Physical Exam Results Vital Signs: Vital Signs Temperature 98.2 F 11/01/18 18:21 Pulse Rate 76 11/01/18 18:21 Respiratory Rate 19 11/01/18 18:21 Blood Pressure 120/72 11/01/18 18:21 O2 Sat by Pulse Oximetry (%) Pertinent Admission Physical Exam Findings: Vital Signs Temperature 98.2 F 11/01/18 18:21 Pulse Rate 76 11/01/18 18:21 Respiratory Rate 19 11/01/18 18:21 Blood Pressure 120/72 11/01/18 18:21 O2 Sat by Pulse Oximetry (%) Laboratory Last Values WBC 3.7 K/mm3 (4.0-10.0) L 10/30/18 07:45 RBC 4.33 M/mm3 (3.60-5.2) 10/30/18 07:45 Hgb 12.6 GM/dL (10.7-15.3) 10/30/18 07:45 Hct 37.5 % (32.4-45.2) D 10/30/18 07:45 MCV 86.5 fl (80-96) 10/30/18 07:45 MCH 29.0 pg (25.7-33.7) D 10/30/18 07:45 MCHC 33.5 g/dl (32.0-36.0) 10/30/18 07:45 RDW 14.1 % (11.6-15.6) 10/30/18 07:45 Plt Count 300 K/MM3 (134-434) D 10/30/18 07:45 MPV 8.2 fl (7.5-11.1) 10/30/18 07:45 Sodium 142 mmol/L (136-145) 10/30/18 07:45 Potassium 4.1 mmol/L (3.5-5.1) 10/30/18 07:45 Chloride 110 mmol/L (98-107) H 10/30/18 07:45 Carbon Dioxide 27 mmol/L (21-32) 10/30/18 07:45 Anion Gap 6 MMOL/L (8-16) L 10/30/18 07:45 BUN 16 mg/dL (7-18) 10/30/18 07:45 Creatinine 0.9 mg/dL (0.55-1.3) 10/30/18 07:45 Creat Clearance w eGFR > 60 (>60) 10/30/18 07:45 Random Glucose 76 mg/dL (74-106) 10/30/18 07:45 Calcium 8.1 mg/dL (8.5-10.1) L 10/30/18 07:45 Total Bilirubin 0.4 mg/dL (0.2-1) 10/30/18 07:45 AST 10 U/L (15-37) L 10/30/18 07:45 ALT 16 U/L (13-61) 10/30/18 07:45 Alkaline Phosphatase 65 U/L (45-117) 10/30/18 07:45 Total Protein 5.7 g/dl (6.4-8.2) L 10/30/18 07:45 Albumin 2.7 g/dl (3.4-5.0) L 10/30/18 07:45 Urine Color Ltyellow 10/31/18 10:03 Urine Appearance Clear 10/31/18 10:03 Urine pH 6.0 (5.0-8.0) 10/31/18 10:03 Ur Specific [place] 1.013 (1.010-1.035) 10/31/18 10:03 Urine Protein Negative (NEGATIVE) 10/31/18 10:03 Urine Glucose (UA) Negative (NEGATIVE) 10/31/18 10:03 Urine Ketones Negative (NEGATIVE) 10/31/18 10:03 Urine Blood Negative (NEGATIVE) 10/31/18 10:03 Urine Nitrite Negative (NEGATIVE) 10/31/18 10:03 Urine Bilirubin Negative (<2.0 mg/dL) 10/31/18 10:03 Urine Urobilinogen Negative mg/dL (0.2-1.0) 10/31/18 10:03 Ur Leukocyte Esterase Negative (NEGATIVE) 10/31/18 10:03 RPR Titer Nonreactive (NONREACTIVE) 10/30/18 07:45 - Medication Discharge Medications: Ambulatory Orders Albuterol Sulfate Inhaler - [Ventolin Hfa Inhaler -] 2 inh PO Q4H PRN 03/31/16 - Diagnosis (1) Opioid dependence with withdrawal Current Visit: Yes Status: Acute (2) Asthma Current Visit: Yes Status: Chronic Qualifiers: Asthma severity: mild Asthma complication type: unspecified (3) Cocaine dependence Current Visit: Yes Status: Chronic Qualifiers: Substance use status: uncomplicated Qualified Code(s): F14.20 - Cocaine dependence, uncomplicated (4) Hepatitis C Current Visit: No Status: Chronic Qualifiers: Viral hepatitis chronicity: chronic Hepatic coma status: without hepatic coma Qualified Code(s): B18.2 - Chronic viral hepatitis C (5) Nicotine dependence Current Visit: Yes Status: Chronic Qualifiers: Nicotine product type: cigarettes Substance use status: uncomplicated Qualified Code(s): F17.210 - Nicotine dependence, cigarettes, uncomplicated - AMA Did Patient Leave Against Medical Advice: Yes
[2018-11-02] MEDS ORDERED: METHADONE HCL 10 MG TABLET (FOR DETOX USE ONLY) PO ONE (10:00)
[2018-11-03] MEDS ORDERED: METHADONE HCL 5 MG TABLET (FOR DETOX USE ONLY) PO ONE (06:00)
== END 2018-11-01 21:10 | disposition left against medical advice (07) | DRG 770 ==
LOC: YASAS 13:45 → Y6N 16:46
PROVIDERS: ADMIT Surgery; ATTEND Surgery
PROC: HZ2ZZZZ Detoxification Services for Substance Abuse Treatment (ICD-10-PCS; principal; 2018-10-29)
DX: F11.23 Opioid dependence with withdrawal (principal); F14.20 Cocaine dependence, uncomplicated; F17.210 Nicotine dependence, cigarettes, uncomplicated; F42.9 Obsessive-compulsive disorder, unspecified; J45.909 Unspecified asthma, uncomplicated; B18.2 Chronic viral hepatitis C; Z91.013 Allergy to seafood; Z91.5 Personal history of self-harm; Z59.0 Homelessness
CPT/HCPCS: 36415; 80053; 81003; 85027; 86593; 93005; 93010

== ENCOUNTER 2019-08-05 16:15 | Inpatient (IN) | payer OTHER ==
[2019-08-05 16:52] VITALS: BMI 21.5
--- NOTE | 2019-08-05 18:05 | HP ---
COWS - Scale Resting Pulse: 1= AL 81-100 Sweatin= Chills/Flushing Restless Observation: 1= Difficult to Sit Still Pupil Size: 0= Normal to Room Light Bone or Joint Aches: 0= None Runny Nose/ Eye Tearin= Runny Nose/Eyes GI Upset > 30mins: 1= Stomach Cramp Tremor Observation: 0= None Yawning Observation: 0= None Anxiety or Irritability: 2=Irritable/Anxious Goose Flesh Skin: 3=Piloerection COWS Score: 11 CIWA Score - Admission Criteria [facility] Guidelines: Admission for Medically Managed Detox: Requires at least one of the followin. CIWA greater than 12 2. Seizures within the past 24 hours 3. Delirium tremens within the past 24 hours 4. Hallucinations within the past 24 hours 5. Acute intervention needed for co occurring medical disorder 6. Acute intervention needed for co occurring psychiatric disorder 7. Severe withdrawal that cannot be handled at a lower level of care (continued vomiting, continued diarrhea, abnormal vital signs) requiring intravenous medication and/or fluids 8. Admitting History and Physical - Past Medical History ...LMP: 06/14/18 - Smoking History Smoking history: Current every day smoker Have you smoked in the past 12 months: Yes Aproximately how many cigarettes per day: 6 - Alcohol/Substance Use Hx Alcohol Use: Yes (SOCIAL DRINKER) Admission [facility] Chief Complaint: C/O WITHDRAWAL SX'S. SEEKING HEROIN DETOX Allergies/Adverse Reactions: Allergies Allergy/AdvReac Type Severity Reaction Status Date / Time mushroom Allergy Severe Difficulty Verified 08/05/19 16:37 Breathing peach Allergy Severe Difficulty Verified 08/05/19 16:37 Breathing plum Allergy Severe Difficulty Verified 08/05/19 16:37 Breathing shellfish derived Allergy Severe Difficulty Verified 08/05/19 16:37 Breathing No Known Drug Allergies Allergy Verified 10/29/18 18:07 History of Present Illness: HERE FOR HEROIN DETOX. CLIENT IS SELF REFERRED. SHE IS KNOWN TO THIS PROGRAM. LAST HERE 10/2018, SHE REPORTS HER LAST DETOX 1 MONTH AGO. REPORTS RELAPSING IMMEDIATELY AFTER DC. SHE REPORTS USING 20 BAGS OF HEROIN 4X A WEEK. LAST USE 6AM 4BAGS. HER NOW WITH C/O WITHDRAWAL SX'S. DENIES OVERDOSE, IVDU, BLACK OUTS, SEIZURES, AVH. SHE ALSO ABUSES THC, KAYY AND STREET METHADONE. LONGEST CLEAN TIME 4 YEARS. MOST RECENT 3 MONTHS RELAPSING 05/2019. HOMELESS, UNEMPLOYED- PANHANDLING, DENIES LEGALS Exam Limitations: No Limitations - Ebola screening Have you traveled outside of the country in the last 21 days: No (N) Have you had contact with anyone from an Ebola affected area: No Do you have a fever: No - Review of Systems Constitutional: Chills, Malaise, Night Sweats, Changes in sleep EENT: reports: Other (WATERY EYES) Respiratory: reports: No Symptoms reported Cardiac: reports: No Symptoms Reported GI: reports: Poor Appetite, Poor Fluid Intake, Abdominal cramping : reports: No Symptoms Reported Musculoskeletal: reports: Back Pain Integumentary: reports: Other (HEALING BLISTER TO NOSE) Neuro: reports: No Symptoms reported Endocrine: reports: No Symptoms Reported Hematology: reports: No Symptoms Reported Psychiatric: reports: Judgement Intact, Orientated x3, Agitated (IRRITBABLE), Anxious Patient History - Patient Medical History Hx Anemia: No Hx Asthma: Yes (onalbuterol inhaler) Hx Chronic Obstructive Pulmonary Disease (COPD): No Hx Cancer: No Hx Cardiac Disorders: No Hx Congestive Heart Failure: No Hx Hypertension: No Hx Hypercholesterolemia: No Hx Pacemaker: No HX Cerebrovascular Accident: No Hx Seizures: No Hx Dementia: No Hx Diabetes: No Hx Gastrointestinal Disorders: No Hx Liver Disease: No Hx Genitourinary Disorders: No Hx Sexually Transmitted Disorders: No Hx Renal Disease (ESRD): No Hx Thyroid Disease: No Hx Human Immunodeficiency Virus (HIV): No Hx Hepatitis C: Yes (VL UNDECTABLE) Hx Depression: Yes Hx Suicide Attempt: Yes (cut left wrist at age 13) Hx Bipolar Disorder: No Hx Schizophrenia: No Other Medical History: SCIATICA, SCOLIOSIS - Patient Surgical History Past Surgical History: No Hx Neurologic Surgery: No Hx Cataract Extraction: No Hx Cardiac Surgery: No Hx Lung Surgery: No Hx Breast Surgery: No Hx Breast Biopsy: No Hx Abdominal Surgery: No Hx Appendectomy: No Hx Cholecystectomy: No Hx Genitourinary Surgery: No Hx Section: No Hx Orthopedic Surgery: No Hx Hysterectomy: No Anesthesia Reaction: No - PPD History Previous Implant?: Yes Documented Results: Negative w/proof Implanted On Prior [facility] Admission?: Yes Date: 10/31/18 Results: 0 mm PPD to be Administered?: No - Reproductive History Patient is a Female of Child Bearing Age (11 -55 yrs old): Yes Last Menstrual Period: 08/01/19 Patient : No (NEG [facility]) - Smoking Cessation Smoking history: Current every day smoker Have you smoked in the past 12 months: Yes Aproximately how many cigarettes per day: 10 Cigars Per Day: 0 Hx Chewing Tobacco Use: No Initiated information on smoking cessation: Yes 'Breaking Loose' booklet given: 08/05/19 - Substance & Tx. History Hx Alcohol Use: No Hx Substance Use: Yes Substance Use Type: Cocaine, Heroin, Marijuana Hx Substance Use Treatment: Yes ([facility]) - Substances abused Heroin Substance route: Inhalation Frequency: 3-6 times per week Amount used: 20 bags Age of first use: 17 Date of last use: 08/05/19 Cocaine Substance route: Smoking Frequency: Daily Amount used: 20 BAGS Age of first use: 16 Date of last use: 08/05/19 Marijuana/Hashish Substance route: Smoking Frequency: Daily Amount used: 5 BLUNTS Age of first use: 8 Date of last use: 08/05/19 Admission Physical Exam S - Vital Signs Vital Signs: Vital Signs - 24 hr 08/05/19 08/05/19 16:49 17:22 Temperature 98.0 F 98.0 F Pulse Rate 87 87 Respiratory 16 16 Rate Blood Pressure 166/97 166/97 - Physical General Appearance: Yes: Moderate Distress, Tremorous (FELT), Irritable HEENTM: Yes: EOMI, Normocephalic, Normal Voice, ERIK, Pharynx Normal Respiratory: Yes: Chest Non-Tender, Lungs Clear, Normal Breath Sounds, No Respiratory Distress, No Accessory Muscle Use Neck: Yes: No masses,lesions,Nodules, Supple, Trachea in good position Breast: Yes: Breasts Symetrical Cardiology: Yes: Regular Rate, S1, S2, Irregularly Irregular Abdominal: Yes: Non Tender, Soft, Increased Bowel Sounds Genitourinary: Yes: Within Normal Limits (NO C/O) Back: Yes: Normal Inspection Musculoskeletal: Yes: Gait Steady Extremities: Yes: Normal Capillary Refill, Normal Range of Motion, Non-Tender, Tremors (FELT) Neurological: Yes: Fully Oriented, Alert, Motor Strength 5/5, Depressed Affect Integumentary: Yes: Dry, Warm, Rash (SEBORRHEIC RASH NOTED TO FACE WITH DRY SKIN. HEALING ULCER TO RIGHT SIDE OF NOSE), Other (PILORECTION) Lymphatic: Yes: Within Normal Limits - Diagnostic (1) Cannabis dependence, uncomplicated Current Visit: Yes Status: Acute (2) Scoliosis Current Visit: Yes Status: Chronic Qualifiers: Scoliosis type: unspecified scoliosis (3) Sciatica Current Visit: Yes Status: Chronic Qualifiers: Laterality: unspecified laterality Qualified Code(s): M54.30 - Sciatica, unspecified side (4) Drug-induced mood disorder Current Visit: Yes Status: Suspected (5) Opioid dependence with withdrawal Current Visit: Yes Status: Acute (6) Asthma Current Visit: Yes Status: Chronic Qualifiers: Asthma severity: mild Asthma complication type: unspecified (7) Cocaine dependence Current Visit: Yes Status: Acute Qualifiers: Substance use status: uncomplicated Qualified Code(s): F14.20 - Cocaine dependence, uncomplicated (8) Nicotine dependence Current Visit: Yes Status: Chronic Qualifiers: Nicotine product type: cigarettes Substance use status: uncomplicated Qualified Code(s): F17.210 - Nicotine dependence, cigarettes, uncomplicated (9) Homeless Current Visit: Yes Status: Acute Cleared for Admission S - Detox or Rehab [facility] Level of Care: Medically Managed Detox Regimen/Protocol: Methadone Claeared for Rehab Admission: No Breathalyzer - Breathalyzer Breathalyzer: 0 Urine Drug Screen - Test Device Lot number: [id number] Expiration date: 04/13/21 - Control Is test valid?: Yes - Results Drug screen NEGATIVE: No Urine drug screen results: THC-Marijuana, KAYY-Cocaine, FEN-Fentanyl, MOP-Opiates , MTD-Methadone Inpatient Rehab Admission - Rehab Decision to Admit Inpatient rehab admission?: No
[2019-08-05] MEDS ORDERED: ACETAMINOPHEN 325 MG TABLET (FP) PO PRN ×2 (18:12)
[2019-08-05] MEDS ORDERED: MAGNESIUM HYDROX 2400MG/30ML ORAL SUSPENSION 30 ML CUP PO PRN (18:12)
[2019-08-05] MEDS ORDERED: BISMUTH SUBSALICYLATE 524 MG/30 ML UD PO PRN (18:12)
[2019-08-05] MEDS ORDERED: NICOTINE POLACRILEX 2 MG GUM BUC PRN (18:12)
[2019-08-05] MEDS ORDERED: DICYCLOMINE HCL 10 MG CAPSULE PO PRN (18:12)
[2019-08-05] MEDS ORDERED: hydrOXYzine PAMOATE 25 MG CAPSULE (FP) PO PRN (18:12)
[2019-08-05] MEDS ORDERED: ALBUTEROL SO4 8 GM HFA INHALER IH PRN (18:12)
[2019-08-05] MEDS ORDERED: MAG HYDROX/AL HYDROX/SIMETH 30 ML UNIT-DOSE CUP PO PRN (18:12)
[2019-08-05] MEDS ORDERED: METHOCARBAMOL 500 MG TABLET PO PRN (18:12)
[2019-08-05] MEDS ORDERED: P-EPHED 60MG/TRIPROLIDI 2.5MG TABLET PO PRN (18:12)
[2019-08-05] MEDS ORDERED: MENTHOL/PHENOL 1 EACH UD MM PRN (18:12)
[2019-08-05] MEDS ORDERED: ONDANSETRON *ODT* 4 MG TABLET SL PRN (18:12)
[2019-08-05] MEDS ORDERED: MELATONIN 5 MG TABLETS PO PRN (18:12)
[2019-08-05] MEDS ORDERED: MAGNESIUM CITRATE 300 ML BOTTLE PO PRN (18:12)
[2019-08-05] MEDS ORDERED: guaiFENesin 200 MG/10 ML 10 ML UNIT-DOSE CUPS PO PRN (18:12)
[2019-08-05] MEDS ORDERED: IBUPROFEN 400 MG TABLET (FP) PO PRN (18:12)
[2019-08-05] MEDS ORDERED: COLLOIDAL OATMEAL 1 BAR EACH TP PRN (19:08)
[2019-08-05] MEDS ORDERED: METHADONE HCL 10 MG TABLET (FOR DETOX USE ONLY) PO ONE (19:35)
[2019-08-05] MEDS: cloNIDine HCL 0.1 MG TABLET PO PRN (19:52)
[2019-08-05] MEDS: THIAMINE HCL 100 MG TABLET (FP) PO SCH (22:22)
[2019-08-06] MEDS ORDERED: METHADONE HCL 5 MG TABLET (FOR DETOX USE ONLY) ONE (09:20)
[2019-08-06] MEDS ORDERED: METHADONE HCL 10 MG TABLET (FOR DETOX USE ONLY) ONE (09:21)
[2019-08-06] MEDS ORDERED: METHADONE (DETOX) 20 MG, METHADONE (DETOX) 5 MG PO ONE (10:00)
[2019-08-06] MEDS: PRENATAL VITAMINS W/ FOLIC ACID TABLET (FP) PO SCH (10:57)
[2019-08-06] MEDS: NICOTINE 14 MG/24 HOURS TOPICAL PATCH TD SCH (10:57)
[2019-08-06 11:01] LABS: ALBUMIN 2.8 g/dl (3.4-5.0); ALK PHOS 59 U/L (45-117); ANION GAP 2 MMOL/L (8-16); BILIRUBIN,TOTAL < 0.1 mg/dL (0.2-1); CALCIUM 8.2 mg/dL (8.5-10.1); CHLORIDE 111 mmol/L (98-107); CO2 29 mmol/L (21-32); CREATININE 0.9 mg/dL (0.55-1.3); GLUCOSE,RANDOM 80 mg/dL (74-106); POTASSIUM 4.2 mmol/L (3.5-5.1); SGOT/AST 7 U/L (15-37); SGPT/ALT 14 U/L (13-61); SODIUM 142 mmol/L (136-145); TOT PROT 5.8 g/dl (6.4-8.2)
[2019-08-06 11:16] LABS: HEMATOCRIT 34.5 % (32.4-45.2); HEMOGLOBIN 11.2 GM/dL (10.7-15.3); MCH 27.5 pg (25.7-33.7); MCHC 32.6 g/dl (32.0-36.0); MEAN CELL VOLUME 84.2 fl (80-96); MEAN PLT VOLUME 7.7 fl (7.5-11.1); PLATELET COUNT 421 K/MM3 (134-434); RBC 4.09 M/mm3 (3.60-5.2); RDW 13.9 % (11.6-15.6); WHITE BLOOD COUNT 4.8 K/mm3 (4.0-10.0)
--- NOTE | 2019-08-06 13:36 | PN ---
BHS COWS - Scale Resting Pulse: 0= [place] 80 or Below Sweatin= Chills/Flushing Restless Observation: 0= Sits Still Pupil Size: 0= Normal to Room Light Bone or Joint Aches: 0= None Runny Nose/ Eye Tearin= None GI Upset > 30mins: 0= None Tremor Observation of Outstretched Hands: 2= Slight Tremor Visible Yawning Observation: 1= 1-2x During Session Anxiety or Irritability: 2=Irritable/Anxious Goose Flesh Skin: 3=Piloerection COWS Score: 9 BHS Progress Note (SOAP) Subjective: Anxious, Fatigue, Sweating. Objective: PATIENT A & O X 3. IN NO ACUTE DISTRESS. 08/06/19 13:37 Vital Signs Temperature 97.5 F L 08/06/19 07:08 Pulse Rate 73 08/06/19 07:08 Respiratory Rate 18 08/06/19 07:08 Blood Pressure 122/80 08/06/19 07:08 O2 Sat by Pulse Oximetry (%) Laboratory Tests 08/06/19 08/06/19 07:40 07:40 WBC 4.8 RBC 4.09 Hgb 11.2 Hct 34.5 MCV 84.2 MCH 27.5 MCHC 32.6 RDW 13.9 Plt Count 421 D MPV 7.7 Sodium 142 Potassium 4.2 Chloride 111 H Carbon Dioxide 29 Anion Gap 2 L BUN 15.0 Creatinine 0.9 Est GFR (CKD-EPI)AfAm 89.50 Est GFR (CKD-EPI)NonAf 77.22 Random Glucose 80 Calcium 8.2 L Total Bilirubin < 0.1 L AST 7 L ALT 14 Alkaline Phosphatase 59 Total Protein 5.8 L Albumin 2.8 L LABS NOTED. Assessment: 08/06/19 13:38 WITHDRAWAL SYMPTOMS. Plan: CONTINUE DETOX.
--- NOTE | 2019-08-06 13:45 | CONSULT ---
[facility] Psychiatric Consult - Data Date of interview: 08/06/19 Admission source: [facility] Identifying data: Patient is approached for psychiatric evaluation. Ms Tom refuses. " I don't want to talk to psychiatrists." Witnessed by practical nursing faculty Holley [place]. Nurses made aware.
[2019-08-06] MEDS: AMMONIUM LACTATE 12% LOTION 225 GM BOTTLE TP SCH ×2 (14:45→22:08)
[2019-08-06] MEDS: THIAMINE HCL 100 MG TABLET (FP) PO SCH (22:08)
[2019-08-07] MEDS ORDERED: METHADONE HCL 10 MG TABLET (FOR DETOX USE ONLY) PO ONE (10:00)
[2019-08-07] MEDS: AMMONIUM LACTATE 12% LOTION 225 GM BOTTLE TP SCH ×2 (10:29→21:18)
[2019-08-07] MEDS: PRENATAL VITAMINS W/ FOLIC ACID TABLET (FP) PO SCH (10:29)
[2019-08-07] MEDS: NICOTINE 14 MG/24 HOURS TOPICAL PATCH TD SCH (10:32)
--- NOTE | 2019-08-07 17:03 | PN ---
BHS COWS - Scale Resting Pulse: 0= NE 80 or Below Sweatin= Chills/Flushing Restless Observation: 1= Difficult to Sit Still Pupil Size: 0= Normal to Room Light Bone or Joint Aches: 2= Severe Diffuse Aches Runny Nose/ Eye Tearin= None GI Upset > 30mins: 1= Stomach Cramp Tremor Observation of Outstretched Hands: 2= Slight Tremor Visible Yawning Observation: 0= None Anxiety or Irritability: 2=Irritable/Anxious Goose Flesh Skin: 0=Smooth Skin COWS Score: 9 BHS Progress Note (SOAP) Subjective: Agitated, chills, sweating, tremor, interrupted sleep Objective: 08/07/19 17:00 Last Vital Signs Temp Pulse Resp BP Pulse Ox 98.2 F 79 16 149/91 08/07/19 09:34 08/07/19 09:34 08/07/19 09:34 08/07/19 09:34 Elevated b/p noted 149/91: denies HTN, on clonidine prn Laboratory Tests 08/06/19 08/06/19 07:40 07:40 WBC 4.8 RBC 4.09 Hgb 11.2 Hct 34.5 MCV 84.2 MCH 27.5 MCHC 32.6 RDW 13.9 Plt Count 421 D MPV 7.7 Sodium 142 Potassium 4.2 Chloride 111 H Carbon Dioxide 29 Anion Gap 2 L BUN 15.0 Creatinine 0.9 Est GFR (CKD-EPI)AfAm 89.50 Est GFR (CKD-EPI)NonAf 77.22 Random Glucose 80 Calcium 8.2 L Total Bilirubin < 0.1 L AST 7 L ALT 14 Alkaline Phosphatase 59 Total Protein 5.8 L Albumin 2.8 L Labs reviewed: Ca 8.2 (low), total protein and albumin 5.8/2.8 (low) Assessment: 08/07/19 17:02 Withdrawal sxs Noted with elevated b/p, hypoalbuminemia and hypocalcemia Plan: Continue detox Encouraged PO water intake Elevated b/p: denies htn, could be r/t withdrawal, continue clonidine prn and monitor b/p Hypoalbuminemia: encouraged diet, ensure TID Hypocalcemia: start calcium carbonate 650mg PO bid x 3 days, repeat serum calcium level on 08/09 in AM
[2019-08-07] MEDS: THIAMINE HCL 100 MG TABLET (FP) PO SCH (21:14)
[2019-08-07] MEDS: CALCIUM CARBONATE 650 MG TABLET PO SCH (21:14)
[2019-08-07] MEDS: cloNIDine HCL 0.1 MG TABLET PO PRN (21:15)
[2019-08-08] MEDS ORDERED: METHADONE HCL 5 MG TABLET (FOR DETOX USE ONLY) ONE (09:21)
[2019-08-08] MEDS ORDERED: METHADONE HCL 10 MG TABLET (FOR DETOX USE ONLY) ONE (09:21)
[2019-08-08] MEDS ORDERED: METHADONE (DETOX) 10 MG, METHADONE (DETOX) 5 MG PO ONE (10:00)
[2019-08-08] MEDS: NICOTINE 14 MG/24 HOURS TOPICAL PATCH TD SCH (10:06)
[2019-08-08] MEDS: CALCIUM CARBONATE 650 MG TABLET PO SCH ×2 (10:06→22:03)
[2019-08-08] MEDS: PRENATAL VITAMINS W/ FOLIC ACID TABLET (FP) PO SCH (10:06)
[2019-08-08] MEDS: AMMONIUM LACTATE 12% LOTION 225 GM BOTTLE TP SCH ×2 (10:06→22:03)
--- NOTE | 2019-08-08 10:59 | PN ---
BHS COWS - Scale Resting Pulse: 0= [place] 80 or Below Sweatin= Chills/Flushing Restless Observation: 0= Sits Still Pupil Size: 0= Normal to Room Light Bone or Joint Aches: 1= Mild Discomfort Runny Nose/ Eye Tearin= None GI Upset > 30mins: 0= None Tremor Observation of Outstretched Hands: 1= Tremor [place], Not Seen Yawning Observation: 1= 1-2x During Session Anxiety or Irritability: 2=Irritable/Anxious Goose Flesh Skin: 0=Smooth Skin COWS Score: 6 BHS Progress Note (SOAP) Subjective: cold sweats chills irritable Objective: 08/08/19 10:59 Vital Signs Temperature 97.7 F 08/08/19 09:22 Pulse Rate 64 08/08/19 09:22 Respiratory Rate 18 08/08/19 09:22 Blood Pressure 147/95 08/08/19 09:22 O2 Sat by Pulse Oximetry (%) aaox3 ambulating no acute distress Assessment: 08/08/19 10:59 mild withdrawals Plan: continue detox increase fluids
[2019-08-08] MEDS: THIAMINE HCL 100 MG TABLET (FP) PO SCH (22:03)
[2019-08-09] MEDS: CALCIUM CARBONATE 650 MG TABLET PO SCH (09:55)
[2019-08-09] MEDS: PRENATAL VITAMINS W/ FOLIC ACID TABLET (FP) PO SCH (09:55)
[2019-08-09] MEDS: NICOTINE 14 MG/24 HOURS TOPICAL PATCH TD SCH (09:55)
[2019-08-09] MEDS: AMMONIUM LACTATE 12% LOTION 225 GM BOTTLE TP SCH (09:55)
[2019-08-09] MEDS ORDERED: METHADONE HCL 10 MG TABLET (FOR DETOX USE ONLY) PO ONE (10:00)
--- NOTE | 2019-08-09 10:12 | PN ---
BHS COWS - Scale Resting Pulse: 0= AL 80 or Below Sweatin= No chills or Flushing Restless Observation: 0= Sits Still Pupil Size: 0= Normal to Room Light Bone or Joint Aches: 0= None Runny Nose/ Eye Tearin= None GI Upset > 30mins: 0= None Tremor Observation of Outstretched Hands: 1= Tremor [place], Not Seen Yawning Observation: 1= 1-2x During Session Anxiety or Irritability: 1=Feels Anxious/Irritable Goose Flesh Skin: 0=Smooth Skin COWS Score: 3 BHS Progress Note (SOAP) Subjective: feeling better irritable Objective: 08/09/19 10:11 Vital Signs Temperature 97.9 F 08/09/19 09:25 Pulse Rate 65 08/09/19 09:25 Respiratory Rate 18 08/09/19 09:25 Blood Pressure 152/96 08/09/19 09:25 O2 Sat by Pulse Oximetry (%) aaox3 lying in bed no acute distress Assessment: 08/09/19 10:12 mild withdrawals Plan: continue detox d/c in am
[2019-08-09 11:15] LABS: EPI CELLS 10.7 /HPF (0-5/HPF); HYALINE CASTS 7 /lpf (0-8); PH,URINE 7.5 (5.0-8.0); URINE APPEARANCE CLEAR; URINE BACTERIA 5467.9 /hpf (NEGATIVE); URINE BILIRUBIN NEGATIVE (NEGATIVE); URINE COLOR YELLOW; URINE GLUCOSE (UA) NEGATIVE (NEGATIVE); URINE KETONE NEGATIVE (NEGATIVE); URINE LEUK ESTERASE TRACE (NEGATIVE); URINE NITRITE POSITIVE (NEGATIVE); URINE PROTEIN NEGATIVE (NEGATIVE); URINE RBC 2 /hpf (0-4); URINE UROBILINOGEN 0.2 mg/dL (0.2-1.0); URINE WBC 9 /hpf (0-5)
[2019-08-09 13:07] VITALS: BP 122/87; PULSE 79; TEMP 99
--- NOTE | 2019-08-09 13:57 | PN ---
S Progress Note Note: pt states she wants to leave. Pt did not want to stay to complete her detox regardless of risk of relapse, seizures, DT, OD, loss. Pt chose to sign out AMA.
--- NOTE | 2019-08-09 14:01 | DS ---
[facility] Detox Discharge Summary Admission Date: 08/05/19 - History Present History: Cannabis Dependence, Cocaine Dependence, Opioid Dependence - Physical Exam Results Vital Signs: Vital Signs Temperature 99.0 F 08/09/19 13:06 Pulse Rate 79 08/09/19 13:06 Respiratory Rate 18 08/09/19 13:06 Blood Pressure 122/87 08/09/19 13:06 O2 Sat by Pulse Oximetry (%) - Treatment Hospital Course: Rehab Referral Accepted - Medication Discharge Medications: Ambulatory Orders Albuterol Sulfate Inhaler - [Ventolin Hfa Inhaler -] 2 inh PO Q4H PRN 03/31/16 - Diagnosis (1) Cannabis dependence, uncomplicated Current Visit: Yes Status: Chronic (2) Cocaine dependence Current Visit: Yes Status: Chronic Qualifiers: Substance use status: uncomplicated Qualified Code(s): F14.20 - Cocaine dependence, uncomplicated (3) Homeless Current Visit: Yes Status: Acute (4) Opioid dependence with withdrawal Current Visit: Yes Status: Chronic (5) Asthma Current Visit: Yes Status: Chronic Qualifiers: Asthma severity: mild Asthma persistence: unspecified Asthma complication type: unspecified Qualified Code(s): J45.909 - Unspecified asthma , uncomplicated (6) Nicotine dependence Current Visit: Yes Status: Chronic Qualifiers: Nicotine product type: cigarettes Substance use status: uncomplicated Qualified Code(s): F17.210 - Nicotine dependence, cigarettes, uncomplicated (7) Sciatica Current Visit: Yes Status: Chronic Qualifiers: Laterality: unspecified laterality Qualified Code(s): M54.30 - Sciatica, unspecified side (8) Scoliosis Current Visit: Yes Status: Chronic Qualifiers: Scoliosis type: unspecified scoliosis (9) Drug-induced mood disorder Current Visit: Yes Status: Suspected (10) Anxiety and depression Current Visit: No Status: Acute (11) OCD (obsessive compulsive disorder) Current Visit: No Status: Acute Qualifiers: Obsessive-compulsive disorder type: unspecified Qualified Code(s): F42.9 - Obsessive-compulsive disorder, unspecified (12) Pica in adults Current Visit: No Status: Acute (13) Hepatitis C Current Visit: No Status: Chronic Qualifiers: Viral hepatitis chronicity: chronic Hepatic coma status: without hepatic coma Qualified Code(s): B18.2 - Chronic viral hepatitis C (14) Personality disorder Current Visit: No Status: Chronic - AMA Did Patient Leave Against Medical Advice: No
[2019-08-10] MEDS ORDERED: METHADONE HCL 5 MG TABLET (FOR DETOX USE ONLY) PO ONE (06:00)
== END 2019-08-09 13:41 | disposition left against medical advice (07) | DRG 770 ==
LOC: YASAS 16:15 → Y6N 19:03
PROVIDERS: ADMIT Allergy & Immunology; ATTEND Allergy & Immunology
PROC: HZ2ZZZZ Detoxification Services for Substance Abuse Treatment (ICD-10-PCS; principal; 2019-08-05)
DX: F11.23 Opioid dependence with withdrawal (principal); F14.20 Cocaine dependence, uncomplicated; F12.20 Cannabis dependence, uncomplicated; F17.210 Nicotine dependence, cigarettes, uncomplicated; F19.24 Other psychoactive substance dependence with psychoactive substance-induced mood disorder; F60.9 Personality disorder, unspecified; F41.8 Other specified anxiety disorders; F32.9 Major depressive disorder, single episode, unspecified; F42.9 Obsessive-compulsive disorder, unspecified; F50.89 Other specified eating disorder; M41.9 Scoliosis, unspecified; M54.30 Sciatica, unspecified side; B18.2 Chronic viral hepatitis C; Z91.018 Allergy to other foods; Z91.013 Allergy to seafood; Z59.0 Homelessness
CPT/HCPCS: 36415; 80053; 81003; 81025; 85027; J0735